=== PATIENT | male | born 1990 | race Caucasian/White ===

== ENCOUNTER → 2019-10-28 16:27 | Outpatient (BNVA) | payer SELFPAY | PROVIDERS: Family Provider Family Medicine; Visit Provider Nurse Practitioner Family | DX: R50.9 Fever, unspecified (principal) | CPT/HCPCS: 87081; 87804; 87880 ==

== ENCOUNTER → 2020-07-17 12:06 | Outpatient (BNVA) | payer OTHER, SELFPAY | PROVIDERS: Family Provider Family Medicine; Visit Provider Nurse Practitioner Family | DX: Z11.59 Encounter for screening for other viral diseases (principal); J06.9 Acute upper respiratory infection, unspecified | CPT/HCPCS: 87635 ==

== ENCOUNTER 2022-02-10 12:20 | Emergency (ER) | payer SELFPAY ==
--- NOTE | 2022-02-10 12:25 | XRR_ITS ---
PROCEDURE INFORMATION: Exam: XR Right Shoulder Exam date and time: 02/10/2022 12:47 PM Age: 32 years old Clinical indication: Shoulder; Right; Patient HX: Pain heard a crunch; Additional info: Injury TECHNIQUE: Imaging protocol: XR Right shoulder. Views: 2 or more views. COMPARISON: No relevant prior studies available. FINDINGS: Bones/joints: Osseous structures are intact. Negative for fracture or dislocation. Soft tissues: Normal. XR/XR shoulder RT min 2V* [id number] IMPRESSION: No acute findings.
[2022-02-10 12:42] VITALS: BP 143/86; PULSE 94; RESP 18; TEMP 36.8; O2SAT 99; BMI 25.7
--- NOTE | 2022-02-10 12:45 | ED_ITS ---
HPI - Extremity Problem General: Chief complaint: Extremity Injury, Upper Stated complaint: Right side collar bone pain and shoulder area Time Seen by Provider: 02/10/22 12:45 Source: patient Mode of arrival: ambulatory Limitations: no limitations History of Present Illness: 32-year-old male presents to the ER today for right shoulder pain x1 month [facility] ED PFSH: Social History (Updated 10/28/19 @ 16:16 by Joan Sanchez LPN) Smoking and tobacco status: current every day smoker Alcohol intake: current Alcohol intake frequency: holidays/special occasions only Course Vital Signs: Vital signs: Vital Signs Temperature 98.2 F 02/10/22 12:42 Pulse Rate 94 02/10/22 12:42 Respiratory Rate 18 02/10/22 12:42 Blood Pressure 143/86 02/10/22 12:42 Pulse Oximetry 99 02/10/22 12:42 Discharge Plan Discharge Condition: Stable Prescriptions: No Action No Known Home Medications 0RF Referrals: Taiwo Valenzuela DO [Primary Care Provider] - Coding Level of Care Code ED Luncheonette Operator for Abdon Roth
--- NOTE | 2022-02-10 12:48 | ED_ITS ---
HPI - Extremity Problem General: Chief complaint: Extremity Injury, Upper Stated complaint: Right side collar bone pain and shoulder area Time Seen by Provider: 02/10/22 12:45 Source: patient Mode of arrival: ambulatory Limitations: no limitations History of Present Illness: 32-year-old male states been having right shoulder pain for roughly a month. He states he was lifting something and felt a pop a month ago and has had intermittent pains he states today he is try to stretch and felt another pop and is having increased pain in that right lateral shoulder states pain is a 3 out of 10 worse with movement improved with rest denies any other injuries. Associated symptoms: Deny chest pain, fever(s) or rash Review of Systems Const: Denies: fever(s), chills, body aches or change in appetite Eyes: Denies: blurry vision or eye discomfort ENMT: Denies: throat pain or dental pain Card: Denies: chest pain Resp: Denies: dyspnea GI: Denies: abdominal pain, nausea, vomiting or diarrhea : Denies: dysuria Musc: Reports: extremity pain Skin/Breast: Denies: rash Neuro: Denies: headache(s) Psych: Denies: depression Steven/Lymph: Denies: easy bruising All/Imm: Denies: urticaria PFSH ED PFSH: Medical History No pertinent past medical history Social History Smoking and tobacco status: current every day smoker Alcohol intake: current Alcohol intake frequency: holidays/special occasions only Physical Exam Const: COMMON NORMALS: no acute distress, patient oriented x3 and healthy appearing HENMT: COMMON NORMALS: normocephalic and atraumatic HEAD & SCALP: normocephalic and atraumatic Eye: COMMON NORMALS: Equal, round and reactive pupils present and EOMs intact bilaterally PUPIL: Yes Equal, round and reactive pupils present Neck/C-Spine: COMMON NORMALS: full ROM and supple Chest: COMMONS NORMALS: normal inspection of the chest and normal palpation of entire chest wall Resp: COMMON NORMALS: normal respiratory effort, No retractions, No use of accessory muscles and clear to auscultation bilaterally AUSCULTATION: clear to auscultation bilaterally Cardio: COMMON NORMALS: regular rate, regular rhythm and No murmurs present (Cardio) RATE: regular rate RHYTHM: regular rhythm GI: INSPECTION: Yes normal to inspection Extremity: COMMON NORMALS: normal to inspection and full ROM NARRATIVE EXTREMITY EXAM: Slight tenderness over right shoulder no obvious deformity distal pulses sensation intact full range of motion is available but does have some pain Neuro: COMMON NORMALS: patient oriented x3, moves all extremities and no focal motor deficits Psych: COMMON NORMALS: mental status grossly normal, Normal thought process present and cooperative THOUGHT PROCESS: Normal thought process present Skin: COMMON NORMALS: no rashes or lesions noted and no wounds GENERAL SKIN EXAM: no rashes or lesions noted Course Vital Signs: Vital signs: Vital Signs Temperature 98.2 F 02/10/22 12:42 Pulse Rate 94 02/10/22 12:42 Respiratory Rate 18 02/10/22 12:42 Blood Pressure 143/86 02/10/22 12:42 Pulse Oximetry 99 02/10/22 12:42 MDM - Extremity (Nontraumatic) Medical Decision Making Patient presents with a right shoulder strain x-ray shows no fractures he is able to have full range of motion no severe pain distal pulses sensation intact we will get him follow-up with orthopedics he is to rest ice and will place him on Naprosyn as well. Discharge Plan Discharge Patient Disposition: Home Clinical Impression: Pain in right shoulder Qualifiers: Chronicity: acute Qualified Code(s): M25.511 - Pain in right shoulder Condition: Stable Prescriptions: New Naprosyn 500 mg tablet 500 mg PO BID PRN (Reason: pain) Qty: 20 0RF Discharge Orders: Discharge ED (Routine); Ordered 02/10/22 Ordered By: Lucio Solomon Referrals: Taiwo Valenzuela DO [Primary Care Provider] - Gavin Bowers DO [Physician] - 1-3 days Discharge Diet: Advance as tolerated Discharge Activity: Resume usual activity Coding Level of Care Code ED Office Machine Punch Operator for Meerag Fwd Exam Comprehensive
[2022-02-10] MEDS: naproxen 500 mg Tablet PO (12:57)
--- NOTE | 2022-02-13 18:39 | DCPLANNER ---
Addendum entered by Tigist Rosenberg 05/14/22 12:15: Patient had a follow up appointment scheduled with ortho - patient did attend appointment. Addendum entered by Tigist Rosenberg 02/17/22 09:10: Patient has a follow up appointment scheduled for Saturday, April 09, 2022 at 11:[address] Anand. Clinic will contact patient with appointment information. Original Note: lands resource manager had message to schedule a follow up appointment for patient with ortho. lands resource manager sent patients information to the front office staff at ortho. Patients information will be printed and reviewed. Clinic will call patient with appointment information.
== END 2022-02-10 13:03 | disposition home or self-care (01) ==
PROVIDERS: Emergency Provider Emergency Medicine; PCP Family Medicine
DX: M25.511 Pain in right shoulder (principal); F17.200 Nicotine dependence, unspecified, uncomplicated
CPT/HCPCS: 73030; 99283

== ENCOUNTER → 2022-04-09 11:23 | Outpatient (BNVA) | payer SELFPAY | PROVIDERS: PCP Family Medicine; Referring Provider Emergency Medicine; Visit Provider Orthopaedic Surgery | DX: M25.511 Pain in right shoulder (principal) | CPT/HCPCS: 73000; 73030 ==

== ENCOUNTER 2022-08-16 22:21 | Emergency (ER) | payer SELFPAY ==
--- NOTE | 2022-08-16 22:22 | ECG_ITS ---
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 Measurements Intervals [place] Rate: 80 P: 64 [place]: 164 QRS: 75 QRSD: 83 T: 64 QT: 333 QTc: 384 Interpretive Statements SINUS RHYTHM POSSIBLE RIGHT VENTRICULAR CONDUCTION DELAY [RSR (QR) IN V1/V2] No previous ECG available for comparison Electronically Signed On 08-17-2022 11:04:02 SKI PATROL by Sid Hollis M.D. [email or web address] All[facility] Servicescovington county hospitalLuxoftriverside methodist hospitalAGI Biopharmaceuticals/store/NU/[id number] f
[2022-08-16 22:28] VITALS: BP 144/74; PULSE 84; RESP 16; TEMP 36.8; O2SAT 99
--- NOTE | 2022-08-16 22:40 | XRR_ITS ---
PROCEDURE INFORMATION: Exam: XR Chest Exam date and time: 08/17/2022 12:09 AM Age: 32 years old Clinical indication: Cough TECHNIQUE: Imaging protocol: Radiologic exam of the chest. Views: 1 view. COMPARISON: [place] [id number] 04/09/2022 11:24 AM FINDINGS: Lungs: Unremarkable. No consolidation. Pleural spaces: Unremarkable. No pleural effusion. No pneumothorax. Heart/Mediastinum: Unremarkable. No cardiomegaly. Bones/joints: Unremarkable. XR/XR chest 1V portable [id number] IMPRESSION: No acute findings.
--- NOTE | 2022-08-16 22:41 | ED_ITS ---
HPI - Arrhythmia/Palpitations General: Chief Complaint: Arrhythmia/Palpitations Stated Complaint: Heart Palpations\Clamy Hands Time Seen by Provider: 08/16/22 22:23 Source: patient Mode of arrival: ambulatory Limitations: no limitations History of Present Illness: 32-year-old male states he smoked marijuana 2 hours ago he states that since then he was having some palpitations he has been having some slight chest pain and feeling shortness of breath. He is well- appearing here his heart rate is in the 80s he denies any vomiting diarrhea denies any worsening proving factors. Associated symptoms: Deny nausea or vomiting Review of Systems Const: Denies: fever(s), chills, body aches or change in appetite Eyes: Denies: blurry vision or eye discomfort ENMT: Denies: throat pain or dental pain Card: Reports: chest pain and palpitations Resp: Reports: dyspnea GI: Denies: abdominal pain, nausea, vomiting or diarrhea : Denies: dysuria Musc: Denies: neck pain or back pain Skin/Breast: Denies: rash Neuro: Denies: headache(s) Psych: Denies: depression Steven/Lymph: Denies: easy bruising All/Imm: Denies: urticaria PFSH ED PFSH: Medical History No pertinent past medical history Social History Smoking and tobacco status: current every day smoker Alcohol intake: current Alcohol intake frequency: holidays/special occasions only Physical Exam Const: COMMON NORMALS: no acute distress, patient oriented x3 and healthy appearing HENMT: COMMON NORMALS: normocephalic and atraumatic HEAD & SCALP: normocephalic and atraumatic Eye: COMMON NORMALS: Equal, round and reactive pupils present and EOMs intact bilaterally PUPIL: Yes Equal, round and reactive pupils present Neck/C-Spine: COMMON NORMALS: full ROM and supple Chest: COMMONS NORMALS: normal inspection of the chest and normal palpation of entire chest wall Resp: COMMON NORMALS: normal respiratory effort, No retractions, No use of accessory muscles and clear to auscultation bilaterally AUSCULTATION: clear to auscultation bilaterally Cardio: COMMON NORMALS: regular rate, regular rhythm and No murmurs present (Cardio) RATE: regular rate RHYTHM: regular rhythm GI: COMMON NORMALS: Normal to inspection, nondistended, normoactive bowel sounds present, Soft to palpation, non-tender and no masses PALPATION: Yes Soft to palpation Extremity: COMMON NORMALS: normal to inspection and full ROM Neuro: COMMON NORMALS: patient oriented x3, moves all extremities and no focal motor deficits Psych: COMMON NORMALS: mental status grossly normal, Normal thought process present and cooperative THOUGHT PROCESS: Normal thought process present Skin: COMMON NORMALS: no rashes or lesions noted and no wounds GENERAL SKIN EXAM: no rashes or lesions noted Course Vital Signs: Vital signs: Vital Signs Temperature 98.3 F 08/16/22 22:28 Pulse Rate 84 08/16/22 22:28 Respiratory Rate 16 08/16/22 22:28 Blood Pressure 144/74 08/16/22 22:28 Pulse Oximetry 99 08/16/22 22:28 Oxygen Delivery Me thod 08/16/22 22:28 MDM - Arrhythmia/Palpitations Medical Decision Making Patient presents with palpitations likely from marijuana use and anxiety his EKG x-ray here is normal he feels much improved he stable for discharge he is follow-up with PCP and return if worsening. EKG Data EKG 1: I personally reviewed and interpreted this EKG as follows: EKG interpretation date: 08/16/22 EKG interpretation time: 22:30 Interpretation: nsr hr [address] or t wave abnormalities qrs 83 qtc 368 Discharge Plan Discharge Patient Disposition: Home Clinical Impression: Palpitations Condition: Stable Prescriptions: No Action Naprosyn 500 mg tablet 500 mg PO BID PRN (Reason: pain) Qty: 20 0RF Discharge Orders: Discharge ED (Routine); Ordered 08/16/22 Ordered By: Lucio Solomon Referrals: Taiwo Valenzuela DO [Primary Care Provider] - 1-3 days Discharge Diet: Advance as tolerated Discharge Activity: Resume usual activity Patient Instructions: Heart Palpitations (ED) Coding Level of Care Code ED Emergency Medicine Specialist for Chg Fwd Exam Comprehensive
[2022-08-16] MEDS: LORazepam 1 mg Tablet PO (22:48)
[2022-08-16 23:23] VITALS: PULSE 78; RESP 16; O2SAT 97
== END 2022-08-16 23:22 | disposition home or self-care (01) ==
PROVIDERS: Emergency Provider Emergency Medicine; PCP Family Medicine
DX: R00.2 Palpitations (principal); F17.210 Nicotine dependence, cigarettes, uncomplicated
CPT/HCPCS: 71045; 93005; 99284

== ENCOUNTER 2022-08-19 14:14 | Emergency (ER) | payer SELFPAY ==
--- NOTE | 2022-08-19 14:17 | ECG_ITS ---
[facility] Test Date: 2022-08-19 Pat Name: Gage Smith Department: Room: Gender: Male Caponizer: : 1990 Requested By: Jasen Pierre Order Number: [id number] Jeremie MD: Prabhjot King M.D. Measurements Intervals [place] Rate: 85 P: 72 [place]: 164 QRS: 71 QRSD: 88 T: 63 QT: 328 QTc: 391 Interpretive Statements SINUS RHYTHM WITH MARKED SINUS ARRHYTHMIA POSSIBLE RIGHT VENTRICULAR CONDUCTION DELAY [RSR (QR) IN V1/V2] Compared to ECG 08/16/2022 22:30:49 No significant changes Electronically Signed On 08-19-2022 17:51:56 MANAGER CABLE by Prabhjot King M.D. [id number] f
[2022-08-19 14:19] VITALS: BP 137/79; PULSE 81; RESP 16; TEMP 36.3; O2SAT 98
--- NOTE | 2022-08-19 18:00 | W.ED.ARRPALP ---
HPI - Arrhythmia/Palpitations General: Chief Complaint: Arrhythmia/Palpitations Stated Complaint: heart rate issues Time Seen by Provider: 08/19/22 17:59 History of Present Illness: 32-year-old male patient comes in today for complaints of rapid heart rate. Patient reports he was at work and had 2 separate episodes of palpitations with tachycardia of heart rate up into the 120s lasting about 3 minutes. Patient reports resolution of symptoms on their own. Patient feels well at this time. Patient does report limiting his use of caffeine and trying to cease smoking nicotine at this time. Patient does use marijuana and occasionally will drink alcohol. Patient reports a history of binge drinking in his earlier years. Patient appears nontoxic. Patient appears in no pain. Review of Systems Const: Denies: fever(s) Card: Reports: palpitations; Denies: chest pain Resp: Denies: dyspnea Musc: Denies: neck pain or back pain PFS ED PFSH: Medical History No pertinent past medical history Social History Smoking and tobacco status: current every day smoker Alcohol intake: current Alcohol intake frequency: holidays/special occasions only Physical Exam Const: COMMON NORMALS: alert HENMT: COMMON NORMALS: normocephalic HEAD & SCALP: normocephalic Neck/C-Spine: COMMON NORMALS: full ROM Resp: COMMON NORMALS: normal respiratory effort and clear to auscultation bilaterally AUSCULTATION: clear to auscultation bilaterally Cardio: COMMON NORMALS: regular rate and regular rhythm RATE: regular rate RHYTHM: regular rhythm GI: COMMON NORMALS: non-tender Extremity: COMMON NORMALS: normal to inspection and no pedal edema Neuro: SENSORIUM/ORIENTATION: Yes alert Skin: COMMON NORMALS: turgor normal GENERAL SKIN EXAM: turgor normal Course Vital Signs: Vital signs: Vital Signs Temperature 97.4 F L 08/19/22 14:19 Pulse Rate 81 08/19/22 14:19 Respiratory Rate 16 08/19/22 14:19 Blood Pressure 137/79 08/19/22 14:19 Pulse Oximetry 98 08/19/22 14:19 Oxygen Delivery Me thod 08/19/22 14:19 MDM - Arrhythmia/Palpitations Medical Decision Making 32-year-old male patient comes in today for complaints of episodes of tachycardia that lasted about 3 to 5 minutes and resolve on their own. Patient has palpitations at this time. Patient appears nontoxic and denies any chest pain or discomfort. Abdomen soft nontender. EKG shows a sinus rhythm with sinus arrhythmia. Vital signs are normal. Differential diagnosis includes but not limited to PSVT, anxiety, adverse drug effect. Reviewed exam with patient recommended further evaluation with a Holter monitor. Order was placed into case management for arrangement and then follow-up with cardiology. Patient was instructed on limiting use of nicotine, caffeine, alcohol, and marijuana. Patient reported understanding of care plan and need for follow-up and return to the ER for worsening symptoms. Discharge Plan Discharge Patient Disposition: Home Clinical Impression: Palpitations, Tachycardia Condition: Stable Prescriptions: No Action Naprosyn 500 mg tablet 500 mg PO BID PRN (Reason: pain) Qty: 20 0RF Discharge Orders: Discharge ED (Routine); Ordered 08/19/22 Ordered By: Luis Ochoa Referrals: Taiwo Valenzuela DO [Primary Care Provider] - Discharge Diet: Usual diet Discharge Activity: Increase activity as tolerated Patient Instructions: Tachycardia (ED) Activity Restrictions/Additional Instructions: Case management will contact you regarding follow-up appointment for Holter monitor testing. We will also have you follow-up with cardiology after the Holter monitor testing for consideration of further evaluation and treatment. Return to the ER for worsening symptoms such as increased shortness of breath, chest pain, persistent tachycardia but does not resolve on its own, or new concerns. Try to stop smoking, caffeine and avoid alcohol and other drug use including marijuana. Stand Alone Forms: Work/School Release Coding Level of Care Code ED Test Administrator for Abdon Roth
[2022-08-19 18:41] VITALS: BP 122/71; PULSE 78; RESP 16; O2SAT 99
--- NOTE | 2022-08-20 12:09 | DCPLANNER ---
Addendum entered by Tigist Rosenberg 10/25/22 14:34: Patient had a follow up appointment scheduled with heart care - patient did attend appointment Addendum entered by Tigist Rosenberg 09/05/22 15:30: Patient had a follow up appointment scheduled for 08.26.22 with heart care - patient did attend appointment. Patient has a follow up appointment scheduled for Friday, October 09, 2022 at 10:[address] Izquierdo. Clinic will call patient with appointment information. Original Note: manager wireless had message to schedule a follow up appointment for patient with cardiology. manager wireless sent patients information to the front office staff at [facility]. Patients information will be printed and reviewed. Clinic will call patient with appointment information. manager wireless had message to schedule an outpatient 72 hour halter monitor. manager wireless faxed signed order to [facility]. Clinic will call patient with appointment information.
== END 2022-08-19 18:44 | disposition home or self-care (01) ==
PROVIDERS: Emergency Provider Nurse Practitioner Family; PCP Family Medicine
DX: R00.2 Palpitations (principal); R00.0 Tachycardia, unspecified
CPT/HCPCS: 93005; 99283

== ENCOUNTER 2022-08-19 21:01 | Emergency (ER) | payer SELFPAY ==
[2022-08-19 21:11] VITALS: BP 169/78; PULSE 110; RESP 20; TEMP 36.3
--- NOTE | 2022-08-19 21:15 | ECG_ITS ---
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 Measurements Intervals [place] Rate: 95 P: 72 [place]: 175 QRS: 72 QRSD: 89 T: 58 QT: 323 QTc: 407 Interpretive Statements SINUS RHYTHM POSSIBLE LEFT ATRIAL ENLARGEMENT [-0.1mV P-WAVE IN V1/V2] POSSIBLE RIGHT VENTRICULAR CONDUCTION DELAY [RSR (QR) IN V1/V2] Diffuse nonspecific ST changes Compared to ECG 08/19/2022 14:24:17 Sinus arrhythmia no longer present Electronically Signed On 08-20-2022 0:00:25 SUBGRADE TESTER by Prabhjot King M.D. [id number] f
--- NOTE | 2022-08-19 21:17 | XRR_ITS ---
PROCEDURE INFORMATION: Exam: XR Chest Exam date and time: 08/19/2022 10:24 PM Age: 32 years old Clinical indication: Chest wall pain; Additional info: Cp TECHNIQUE: Imaging protocol: Radiologic exam of the chest. Views: 1 view. COMPARISON: CR (CHEST, ) 08/17/2022 12:09 AM FINDINGS: Lungs: Stable hyperaerated lungs consistent with deep inspiratory effort vs reactive airway disease vs mild COPD . Pleural spaces: Unremarkable. No pleural effusion. No pneumothorax. Heart/Mediastinum: Unremarkable. No cardiomegaly. Bones/joints: Unremarkable. XR/XR chest 1V portable [id number] IMPRESSION: Stable hyperaerated lungs consistent with deep inspiratory effort vs reactive airway disease vs mild COPD .
--- NOTE | 2022-08-19 21:23 | W.ED.ARRPALP ---
HPI - Arrhythmia/Palpitations General: Chief Complaint: Arrhythmia/Palpitations Stated Complaint: Chest Pains Time Seen by Provider: 08/19/22 21:19 Source: patient Mode of arrival: ambulatory Limitations: no limitations History of Present Illness: 32-year-old male states that he has been having palpitations and has been seen here multiple times for palpitations and tachycardia states today his heart rate up to 150s had seen here earlier today also his heart rate here is 95 he does have hypertension he is not on any meds he denies any pain currently. Associated symptoms: Reports vomiting; Deny nausea Review of Systems Const: Denies: fever(s), chills, body aches or change in appetite Eyes: Denies: blurry vision or eye discomfort ENMT: Denies: throat pain or dental pain Card: Reports: palpitations Resp: Denies: dyspnea GI: Reports: vomiting; Denies: abdominal pain, nausea or diarrhea : Denies: dysuria Musc: Denies: neck pain or back pain Skin/Breast: Denies: rash Neuro: Denies: headache(s) Psych: Denies: depression Steven/Lymph: Denies: easy bruising All/Imm: Denies: urticaria PFSH ED PFSH: Medical History No pertinent past medical history Social History Smoking and tobacco status: current every day smoker Alcohol intake: current Alcohol intake frequency: holidays/special occasions only Physical Exam Const: COMMON NORMALS: no acute distress, patient oriented x3 and healthy appearing HENMT: COMMON NORMALS: normocephalic and atraumatic HEAD & SCALP: normocephalic and atraumatic Eye: COMMON NORMALS: Equal, round and reactive pupils present and EOMs intact bilaterally PUPIL: Yes Equal, round and reactive pupils present Neck/C-Spine: COMMON NORMALS: full ROM and supple Chest: COMMONS NORMALS: normal inspection of the chest and normal palpation of entire chest wall Resp: COMMON NORMALS: normal respiratory effort, No retractions, No use of accessory muscles and clear to auscultation bilaterally AUSCULTATION: clear to auscultation bilaterally Cardio: COMMON NORMALS: regular rate, regular rhythm and No murmurs present (Cardio) RATE: regular rate RHYTHM: regular rhythm GI: COMMON NORMALS: Normal to inspection, nondistended, normoactive bowel sounds present, Soft to palpation, non-tender and no masses PALPATION: Yes Soft to palpation Extremity: COMMON NORMALS: normal to inspection and full ROM Neuro: COMMON NORMALS: patient oriented x3, moves all extremities and no focal motor deficits Psych: COMMON NORMALS: mental status grossly normal, Normal thought process present and cooperative THOUGHT PROCESS: Normal thought process present Skin: COMMON NORMALS: no rashes or lesions noted and no wounds GENERAL SKIN EXAM: no rashes or lesions noted Course Vital Signs: Vital signs: Vital Signs Temperature 97.4 F L 08/19/22 21:11 Pulse Rate 81 08/19/22 22:03 Respiratory Rate 16 08/19/22 22:03 Blood Pressure 145/66 08/19/22 22:03 Pulse Oximetry 97 08/19/22 22:03 MDM - Arrhythmia/Palpitations Medical Decision Making Patient presents here with palpitations and his heart rate is much improved here we will start him on metoprolol he is to follow-up PCP and return if worsening. Lab Data 08/19/22 21:32 08/19/22 21:32 Radiology Impressions Chest X-Ray 08/19/22 21:17 IMPRESSION: Stable hyperaerated lungs consistent with deep inspiratory effort vs reactive airway disease vs mild COPD . Laboratory Results WBC 10.6 10^3/uL (4.0-10.0) H 08/19/22 21:32 RBC 5.50 10^6/uL (4.1-5.3) H 08/19/22 21:32 Hgb 16.2 g/dL (11.7-16.6) 08/19/22 21:32 Hct 48.2 % (42.0-52.0) 08/19/22 21:32 MCV 87.6 fl (80-94) 08/19/22 21:32 MCH 29.5 pg (28.0-34.0) 08/19/22 21:32 MCHC 33.6 g/dL (30.0-36.0) 08/19/22 21:32 RDW 12.4 % (12.1-15.1) 08/19/22 21:32 Plt Count 271 10^3/cmm (130-400) 08/19/22 21:32 MPV 9.2 fL (7.4-10.4) 08/19/22 21:32 Neut % (Auto) 69.8 % 08/19/22 21: Lymph % (Auto) 18.4 % 08/19/22 21:32 [place] % (Auto) 10.1 % 08/19/22 21: Eos % (Auto) 1.0 % 08/19/22 21: Baso % (Auto) 0.5 % 08/19/22 21: Neut # (Auto) 7.37 10^3/uL (1.8-7.7) 08/19/22 21: Lymph # (Auto) 2.0 10^3/uL (0.8-4.8) 08/19/22 21: Sweet [place] # (Auto) 1.1 10^3/uL (0.2-0.9) H 08/19/22 21: Eos # (Auto) 0.1 10^3/uL (0.0-0.8) 08/19/22 21: Baso # (Auto) 0.1 10^3/uL (0.0-0.1) 08/19/22 21: Nucleated RBC % (auto) 0 % 08/19/22 21: Nucleated RBCs # 0.0 /100WBC 08/19/22 21:32 D-Dimer <= 0.27 ug/mIFEU (0-0.59) 08/19/22 21:32 Sodium 137 mmol/L (136-145) 08/19/22 21:32 Potassium 3.6 mmol/L (3.5-5.1) 08/19/22 21: Chloride 100 mmol/L (98-107) 08/19/22 21: Carbon Dioxide 28 mmol/L (22-29) 08/19/22 21:32 Anion Gap 12.6 (5-19) 08/19/22 21:32 BUN 11 mg/dL (6-20) 08/19/22 21:32 Creatinine 0.7 mg/dL (0.7-1.2) 08/19/22 21:32 GFR Calculation 129.9 mL/min (90-130) 08/19/22 21:32 Glucose 104 mg/dL (65-115) 08/19/22 21:32 Calculated Osmolality 284 mOsm/kg (285-295) L 08/19/22 21:32 Calcium 9.8 mg/dL (8.5-10.5) 08/19/22 21:32 Magnesium 2.1 mg/dL (1.7-2.3) 08/19/22 21:32 Total Bilirubin 0.4 mg/dL (0.15-1.2) 08/19/22 21:32 AST 23 U/L (0-40) 08/19/22 21:32 ALT 24 U/L (0-41) 08/19/22 21:32 Alkaline Phosphatase 89 U/L (40-130) 08/19/22 21:32 Troponin T Baseline 6 ng/L (0-15) 08/19/22 21:32 NT-Pro-B Natriuret Pep 26 pg/mL (0-125) 08/19/22 21:32 Total Protein 7.8 g/dL (6.6-8.7) 08/19/22 21:32 Albumin 4.5 g/dL (3.5-5.2) 08/19/22 21:32 Globulin 3.3 g/dL (1.3-4.6) 08/19/22 21:32 Lipase 20 U/L (13-60) 08/19/22 21:32 EKG Data EKG 1: I personally reviewed and interpreted this EKG as follows: EKG interpretation date: 08/19/22 EKG interpretation time: 21:15 Interpretation: nsr hr [address] or t wave abnormalities qrs 89 qtc 376 Other EKG comments: Chest X-Ray 08/19/22 21:17 IMPRESSION: Stable hyperaerated lungs consistent with deep inspiratory effort vs reactive airway disease vs mild COPD . Discharge Plan Discharge Patient Disposition: Home Clinical Impression: Palpitations Condition: Stable Prescriptions: New metoprolol succinate 25 mg tablet extended release 24 hr 25 mg PO DAILY Qty: 30 0RF No Action Naprosyn 500 mg tablet 500 mg PO BID PRN (Reason: pain) Qty: 20 0RF Discharge Orders: Discharge ED (Routine); Ordered 08/19/22 Ordered By: Lucio Solomon Discharge Diet: Advance as tolerated Discharge Activity: Resume usual activity Patient Instructions: Heart Palpitations (ED) Coding Level of Care Code ED Store Operations Specialist for Chg Fwd Exam Comprehensive
[2022-08-19 21:33] VITALS: BP 157/78; PULSE 86; RESP 15; O2SAT 95
[2022-08-19 21:37] LABS: Basophils # 0.1 10^3/uL (0.0-0.1); Basophils % 0.5 %; Eosinophils # 0.1 10^3/uL (0.0-0.8); Hematocrit 48.2 % (42.0-52.0); Hemoglobin 16.2 g/dL (11.7-16.6); Lymphocytes % 18.4 %; Mean Corpuscular HGB Conc 33.6 g/dL (30.0-36.0); Mean Corpuscular Hemoglobin 29.5 pg (28.0-34.0); Mean Corpuscular Volume 87.6 fl (80-94); Mean Platelet Volume 9.2 fL (7.4-10.4); Monocytes # 1.1 10^3/uL (0.2-0.9); Monocytes % 10.1 %; Neutrophils # 7.37 10^3/uL (1.8-7.7); Neutrophils % 69.8 %; Nucleated Red Blood Cells % 0 %; Platelet Count 271 10^3/cmm (130-400); Red Cell Distribution Width 12.4 % (12.1-15.1); White Blood Count 10.6 10^3/uL (4.0-10.0)
[2022-08-19 21:49] LABS: D Dimer <= 0.27 ug/mIFEU (0-0.59)
[2022-08-19 21:56] LABS: Troponin(5th) Baseline 6 ng/L (0-15)
[2022-08-19 22:03] VITALS: BP 145/66; PULSE 81; RESP 16; O2SAT 97
[2022-08-19 22:03] LABS: Alanine Aminotransferase 24 U/L (0-41); Albumin Level 4.5 g/dL (3.5-5.2); Alkaline Phosphatase 89 U/L (40-130); Anion Gap 12.6 (5-19); Aspartate Amino Transferase 23 U/L (0-40); Blood Urea Nitrogen 11 mg/dL (6-20); Calcium 9.8 mg/dL (8.5-10.5); Carbon Dioxide 28 mmol/L (22-29); Chloride 100 mmol/L (98-107); Globulin 3.3 g/dL (1.3-4.6); Glomerular Filtration Rate 129.9 mL/min (90-130); Glucose 104 mg/dL (65-115); Lipase 20 U/L (13-60); Magnesium 2.1 mg/dL (1.7-2.3); NT Pro B Type Natriuretic Pept 26 pg/mL (0-125); Osmolality Calculated 284 mOsm/kg (285-295); Potassium 3.6 mmol/L (3.5-5.1); Sodium 137 mmol/L (136-145); Total Bilirubin 0.4 mg/dL (0.15-1.2); Total Protein 7.8 g/dL (6.6-8.7)
[2022-08-19 22:34] VITALS: BP 138/76; PULSE 87; RESP 16; O2SAT 98
== END 2022-08-19 22:35 | disposition home or self-care (01) ==
PROVIDERS: Nurse Practitioner Family; Emergency Provider Emergency Medicine
DX: R00.2 Palpitations (principal)
CPT/HCPCS: 71045; 80053; 83690; 83735; 83880; 84484; 85025; 85378; 93005; 96374; 99285

== ENCOUNTER → 2022-08-21 12:40 | Outpatient (BNVA) | payer SELFPAY | PROVIDERS: Visit Provider Family Medicine | DX: R00.2 Palpitations (principal); Z23 Encounter for immunization; Z72.0 Tobacco use; F12.90 Cannabis use, unspecified, uncomplicated; L40.9 Psoriasis, unspecified | CPT/HCPCS: 84439; 84443 ==

== ENCOUNTER 2024-06-29 13:27 | Emergency (ER) | payer SELFPAY ==
--- NOTE | 2024-06-29 14:38 | XRR_ITS ---
PROCEDURE INFORMATION: Exam: XR Right Hip Exam date and time: 06/29/2024 2:52 PM Age: 34 years old Clinical indication: Hip pain; Right hip TECHNIQUE: Imaging protocol: Radiologic exam of the right hip. Views: 1 view hip with pelvis when performed. COMPARISON: No relevant prior studies available. FINDINGS: Bones/joints: Unremarkable. No acute fracture. Soft tissues: Unremarkable. XR/XR hip RT 2-3V wo/w pel* [id number] IMPRESSION: No acute findings.
[2024-06-29 15:15] VITALS: BP 165/89; PULSE 87; RESP 18; TEMP 37.2; O2SAT 97; BMI 27.7
[2024-06-29 15:18] VITALS: RESP 18; O2SAT 95
--- NOTE | 2024-06-29 15:26 | ED_ITS ---
HPI - Back Pain/Injury General: Chief Complaint: Extremity Injury, Upper Stated Complaint: right hip injury Time Seen by Provider: 06/29/24 15:21 Source: patient Mode of arrival: ambulatory Limitations: no limitations History of Present Illness: Patient is a nice 34-year-old male presents to ED today with complaint of right hip pain. Patient states approximately 3 to 4 days ago he was lifting at work and pulled something in his lower back. He felt like over the past 2 days or so this has slowly improved but feels like pain moved into his right hip. He states he has had very similar symptoms several times previously. He is ambulatory here without assistance. He has not noticed any redness or warmth surrounding the hip joint. No rash. He is not having any saddle anesthesia. He is urinating and defecating normally. No fevers. MD elicited complaint: other (R hip/back pain) Pertinent past history: prior back pain Onset (ago): day(s) Timing: constant Severity: moderate Similar Symptoms Previously: Yes Location: lumbar spine and right lower back Radiation: right upper leg (hip) Exacerbating factors: movement and walking Relieving factors: none Context: while lifting Associated symptoms: Reports no associated symptoms; Deny abdominal pain, dysuria, fever(s) or hematuria Related Data Home Medications Medication Instructions Recorded Confirmed ibuprofen 200 mg tablet 200 mg PO Q6H PRN 10/09/22 Previous Rx's Medication Instructions Recorded metoprolol succinate 25 mg 25 mg PO DAILY #90 tabs 10/09/22 tablet,extended release 24 hr diclofenac sodium 50 mg 50 mg PO Q12H PRN pain #20 tabs 06/29/24 tablet,delayed release methylprednisolone 4 mg tablets in See Rx Instructions PO .COMPLEX 06/29/24 a dose pack (Medrol (Dave)) #21 ea Allergies Allergy/AdvReac Type Severity Reaction Status Date / Time No Known Allergies Allergy Verified 08/21/22 12:04 Review of Systems Const: Denies: fever(s) Card: Denies: chest pain Resp: Denies: dyspnea GI: Denies: abdominal pain : Denies: flank pain, dysuria or hematuria Musc: Reports: back pain and joint pain (R hip); Denies: neck pain, extremity pain, extremity swelling, joint swelling, joint redness, joint warmth or limited range of motion Skin/Breast: Denies: rash Neuro: Denies: numbness in extremities, weakness in extremities or sensory changes PFSH ED PFSH: Medical History Psoriasis Marijuana use Tobacco use Surgical History No history of previous surgery Family History Mother Thyroid dysfunction Father No problems noted. Family/Other Myocardial infarction Hypertension Diabetes Social History Smoking and tobacco/nicotine status: current every day tobacco/nicotine user cigarettes [ Other cigarette details: Recently only 1 cig/week] Alcohol intake: current Alcohol intake frequency: holidays/special occasions only Substance/Drug Use: current Substance/Drug use frequency: few times a week Household members: spouse and children Marital status: Number of children: 2 Current occupational status: employed Current occupation: [employer] Physical Exam Const: COMMON NORMALS: no acute distress, average body habitus, patient oriented x3, no limitations, healthy appearing, alert and well nourished GI: COMMON NORMALS: Soft to palpation, non-tender and no masses PALPATION: Yes Soft to palpation : COMMON NORMALS: Yes no CVA tenderness BLADDER/KIDNEY EXAM: Yes no CVA tenderness Back/Pelvis: COMMON NORMALS: no CVA tenderness, thoracic and lumbar spine normal to inspection and no thoracic nor lumbar tenderness LUMBAR SPINE/LOWER BACK: No lumbar spinal tenderness, Yes paraspinal muscle tenderness Lumbar paraspinal muscle tenderness: right, No paraspinal muscle spasm and Yes straight leg raise negative bilaterally PELVIS: Yes buttocks normal and Yes sciatic notch tenderness on the right SACROILIAC JOINTS: Yes SI joints normal SACRUM: no tenderness COCCYX: no tenderness Extremity: COMMON NORMALS: normal to inspection, full ROM, capillary refill normal, no joint enlargement, no clubbing, cyanosis or edema, no calf tenderness and no pedal edema GENERAL: Yes normal exam except as noted Neuro: COMMON NORMALS: patient oriented x3, moves all extremities, no focal motor deficits, no sensory deficits noted and gait normal SENSORIUM/ORIENTATION: Yes alert Skin: COMMON NORMALS: no rashes or lesions noted GENERAL SKIN EXAM: no rashes or lesions noted Course 2 Vital Signs: Vital signs: Vital Signs Temperature 98.9 F 06/29/24 15:15 Pulse Rate 87 06/29/24 15:15 Respiratory Rate 18 06/29/24 15:18 Blood Pressure 165/89 06/29/24 15:15 Pulse Oximetry 95 06/29/24 15:18 Oxygen Delivery Me thod Room Air 06/29/24 15:18 MDM - Back Pain/Injury Medical Decision Making Patient appears in no acute distress. XR of the hip ordered from triage and is unremarkable. He has no acute neurologic deficits. He was given IM Dexamethasone and Toradol prior to discharge. Will place on steroids and anti- inflammatories at home. Recommend follow-up with primary care in 1 to 2 weeks if symptoms do not seem to be improving. Medical Records I reviewed the patient's medical records. Labs Radiology Impressions Hip/Pelvis X-Ray 06/29/24 14:38 IMPRESSION: No acute findings. All radiology interpretation(s) finalized by discharge Discharge Plan Discharge Patient Disposition: Home Clinical Impression: Acute pain of right hip Condition: Stable Prescriptions: New diclofenac sodium 50 mg tablet,delayed release (DR/EC) 50 mg PO Q12H PRN (Reason: pain) Qty: 20 0RF methylprednisolone [Medrol (Dave)] 4 mg tablets,dose pack See Rx Instructions .ROUTE .COMPLEX Qty: 21 0RF Rx Instructions: orally per package directions Held ibuprofen 200 mg tablet 200 mg PO Q6H PRN Hold Instructions: do not take if taking diclofenac No Action metoprolol succinate 25 mg tablet extended release 24 hr 25 mg PO DAILY Qty: 90 1RF Discharge Orders: Discharge ED (Routine); Ordered 06/29/24 Ordered By: Valorie Artis Referrals: Fany Cortés MD [Primary Care Provider] - Activity Restrictions/Additional Instructions: As we discussed, please follow-up with primary care in 1 to 2 weeks if symptoms do not seem to be improving. Do not take the diclofenac prescribed to you today along with [id number] anti-inflammatory such as ibuprofen or naproxen. Coding Level of Care Code ED Machinist Wood for Abdon Roth
[2024-06-29] MEDS: dexamethasone 10 mg/mL INJ 8 MG IM (15:45)
[2024-06-29] MEDS: ketorolac 60 mg/2 mL INJ IM (15:45)
== END 2024-06-29 15:51 | disposition home or self-care (01) ==
PROVIDERS: Emergency Provider Physician Assistant; PCP Family Medicine
DX: M25.551 Pain in right hip (principal); F17.210 Nicotine dependence, cigarettes, uncomplicated
CPT/HCPCS: 73502; 96372; 99284; J1100; J1885